=== PATIENT | male | born 1970 | race Caucasian/White ===

== ENCOUNTER → 2016-11-14 | Outpatient (CLI) | payer BC ==
--- NOTE | 2016-11-15 08:51 | MR ---
EXAMINATION: MRI lumbar spine HISTORY: Back pain COMPARISON: 12/16/2015 TECHNIQUE: Multiplanar and multisequence images obtained of the lumbar spine without contrast. FINDINGS: The lumbar spinal alignment appears normal. The vertebral body heights appear maintained. Endplate signal changes are noted at L5-S1. No suspicious bone marrow signal. There is partial fusio n of the right SI joint and a bridging osteophyte along the left SI joint. The distal spinal cord ap pears normal and the conus terminates at L1. There is a fine linear T1 focus extending from the filu m likely a tiny fibrolipoma. Visualized retroperitoneal structures appear normal. There are congenit ally shortened pedicles length. T12-L1: Small diffuse disc bulge with mild facet hypertrophy resulting in moderate spinal canal sten osis. There is moderate left and mild right neural foraminal stenosis. L1-L2: Small diffuse disc bulge with mild facet and ligamentum flavum hypertrophy resulting in moder ate spinal canal stenosis. There is moderate bilateral neural foraminal stenosis. L2-L3: Tiny diffuse disc bulge with mild facet and ligamentum flavum hypertrophy resulting in mild-t o-moderate spinal canal stenosis. Mild bilateral neural foraminal stenosis. L3-L4: Small to moderate diffuse disc bulge resulting in moderate spinal canal stenosis. Moderate to severe left and moderate right neural foraminal stenosis. L4-L5: Moderate diffuse disc bulge with facet and ligamentum flavum hypertrophy resulting in severe spinal canal stenosis. There is moderate to severe bilateral neural foraminal stenosis. L5-S1: Small diffuse disc bulge without significant spinal canal stenosis. There is moderate severe bilateral neural foraminal stenosis. IMPRESSION: 1. Moderate multilevel degenerative disc disease noted throughout the lumbar spine with congenitally shortened pedicles heights extension. The underlying stenosis. Individual details above. 2. 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 3. Moderate degenerative changes noted at the SI joints bilaterally.
== END ==
LOC: MW.MRI 09:15
PROVIDERS: ATTEND Student in an Organized Health Care Education/Training Program
DX: M54.5 Low back pain (principal); M51.36 Other intervertebral disc degeneration, lumbar region; M47.818 Spondylosis without myelopathy or radiculopathy, sacral and sacrococcygeal region
CPT/HCPCS: 72148; 72148-26

== ENCOUNTER 2016-12-08 22:59 | Emergency (ER) | payer BC ==
[2016-12-08 23:12] VITALS: BP 154/100
[2016-12-08] MEDS ORDERED: Lidocaine 1% with EPINEPHrine 1:100,000 20 ML MDV INJECT ONE (23:29)
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
[2016-12-09] MEDS ORDERED: ceFAZolin 1 GM Vial IM ONE (00:45)
[2016-12-09] MEDS ORDERED: Ondansetron 4 MG Tab.DIS PO ONE (01:00)
[2016-12-09] MEDS ORDERED: HYDROmorphone 1 MG/ML Syringe IM ONE (01:00)
[2016-12-09] MEDS ORDERED: Water For Injection, Sterile 20 ML ONE (01:10)
[2016-12-09] MEDS ORDERED: Octyl 2-Cyanoacrylate 1 Tube ONE (01:47)
[2016-12-09] MEDS ORDERED: Bacitracin Oint 1 GM U/D Packet TOP ONE (02:02)
[2016-12-09] MEDS ORDERED: Octyl 2-Cyanoacrylate 1 Tube TOP ONE (02:02)
[2016-12-09] MEDS ORDERED: Diphtheria,Pertussis(Acell),Tetanus Vaccine 0.5 ML Syringe IM ONE (02:11)
[2016-12-09] MEDS ORDERED: Diphtheria,Pertussis(Acell),Tetanus Vaccine 0.5 ML Syringe ONE (02:13)
--- NOTE | 2016-12-10 18:29 | CR ---
EXAM DATE: 12/08/16 PATIENT'S AGE: 46 Patient: ZION MERCADO Facility: [place], [place] Site . Site : 1970 Study: XRay Extremity Right ELBOW [id number]/6/2017 11:27:11 PM Ordering Physician: Lei Beckford Final Report: Indication: Trauma and pain Technique: Right elbow 3 views Comparison: None Findings/Impression: Bones: Alignment is normal. No fractures or bone lesions. Joint spaces: Unremarkable. No sign of joint effusion. Soft tissues: Multiple foci of foreign debris is present in the soft tissues adjacent to the olecranon. Dictated by Chip Sparks MD @ 12/09/2016 12:06:45 AM Dictated by: Chip Sparks MD @ 12/09/2016 00:07:04 (Electronic Signature) Report Signed by Proxy. CHRISS
== END 2016-12-09 02:22 | disposition home or self-care (01) ==
LOC: MW.ED 22:59
DX: S51.021A Laceration with foreign body of right elbow, initial encounter (principal); Z23 Encounter for immunization; V89.0XXA Person injured in unspecified motor-vehicle accident, nontraffic, initial encounter
CPT/HCPCS: 73080; 90715; 96372; 99284; A9270; G0390; J0690; J1170; 12004

== ENCOUNTER 2021-06-02 14:20 | Inpatient (IN) | payer BC ==
--- NOTE | 2021-06-02 16:39 | PCM.EKG ---
#1 Interpretation Time: 16:33 EKG Interpretation Comments: 87, normal sinus rhythm, nonspecific ST/T findings.
[2021-06-02] MEDS ORDERED: Sodium Chloride 0.9% 1,000 ML IV ONE (18:36)
[2021-06-02] MEDS ORDERED: Sodium Chloride 0.9% 2.5 ML Syringe FLUSH PRN (18:36)
[2021-06-02] MEDS ORDERED: Sodium Chloride 0.9% 10 ML Syringe FLUSH PRN (18:36)
[2021-06-02 19:22] LABS: BLOOD UREA NITROGEN,BUN 7 mg/dL (7.0-18.0); CARBON DIOXIDE,CO2 26.9 mmol/L (21.0-32.0); CHLORIDE,CL 95 mmol/L (98-107); GLUCOSE RANDOM 136 mg/dL (74-106); LIPASE 283 U/L (73-393); SODIUM,NA 131 mmol/L (136-148)
[2021-06-02] MEDS ORDERED: REMDESIVIR 200 MG in Sodium Chloride 0.9% 250 ML IV ONE (21:04)
[2021-06-02] MEDS ORDERED: Dexamethasone 10 MG/ML SDV IVPUSH ONE (21:04)
--- NOTE | 2021-06-02 21:50 | CR ---
INDICATION: Pain, shortness of breath, cough, COVID positive TECHNIQUE: Portable upright AP view of the chest COMPARISON: None FINDINGS: There are bilateral peripheral pulmonary opacities, likely representing COVID infiltrates. There is no sizable pleural effusion or pneumothorax. The cardiomediastinal silhouette is normal. The visualized osseous structures are unremarkable. IMPRESSION: Bilateral peripheral pulmonary opacities, likely representing COVID infiltrates. Dictated by Ghislaine Ryder MD @ 06/02/2021 9:49:39 PM (Electronically Signed)
--- NOTE | 2021-06-02 21:54 | EDM.PDOC ---
ED HPI GENERAL MEDICAL PROBLEM - General Chief Complaint: Respiratory Problem Stated Complaint: SOB,COUGH Time Seen by Provider: 06/02/21 18:03 Source of Information: Reports: Patient History Limitations: Reports: No Limitations - History of Present Illness INITIAL COMMENTS - FREE TEXT/NARRATIVE: HISTORY AND PHYSICAL: History of present illness: Patient is a 50-year-old male, with a history of hypertension, and known COVID- 19 diagnosis x1 week, who presents emergency room today with concern of worsening shortness of breath. Patient states that he has had symptoms for approximately 10 days and was diagnosed approximately a week ago with COVID-19. Patient states that he has been quarantining but since today, has been more short of breath than he has been. Patient states he has a pulse oximeter at home and his oxygen was in the high 80s/low 90s so came to the emergency room for further evaluation. Patient states with resuscitative Covid, he has had intermittent fevers, headache, generalized body aches, nausea, and diarrhea. Patient denies chest pain. Denies neck stiff ness, change in vision, syncope, or near syncope. Denies vomiting, abdominal pain, diarrhea, constipation, or dysuria. Has not noted any blood in urine or stool. Patient has been eating and drinking appropriately. Review of systems: As per history of present illness and below otherwise all systems reviewed and negative. Past medical history: As per history of present illness and as reviewed below otherwise noncontributory. Surgical history: As per history of present illness and as reviewed below otherwise noncontributory. Social history: See social history for further information Family history: As per history of present illness and as reviewed below otherwise noncontributor y. Physical exam: General: Patient is alert, oriented, and in no acute distress. Patient sitting comfortably on exam table. Tired appearing. Patient is 86% on room air, otherwise vitally stable and reviewed by me. HEENT: Atraumatic, normocephalic, pupils equal and reactive bilaterally, negative for conjunctival pallor or scleral icterus, mucous membranes moist, throat clear, neck supple, nontender, trachea midline. No drooling or trismus noted. No meningeal signs. No hot potato voice noted. Lungs: Clear to auscultation, breath sounds equal bilaterally, chest nontender. Heart: S1S2, regular rate and rhythm without overt murmur Abdomen: Soft, nondistended, nontender. Negative for masses or hepatosplenomegaly. Negative for costovertebral tenderness. Pelvis: Stable nontender. Genitourinary: Deferred. Rectal: Deferred. Skin: Intact, warm, dry. No lesions or rashes noted. Extremities: Atraumatic, negative for cords or calf pain. Neurovascular unremarkable. Neuro: Awake, alert, oriented. Cranial nerves II through XII unremarkable. Cerebellum unremarkable. Motor and sensory unremarkable throughout. Exam nonfocal. Medical Decision Making: Patient is a 50-year-old male, with a history of hypertension, and known COVID- 19 diagnosis who presents emergency room today with concern of worsening shortness of breath and hypoxia. Upon arrival to the ED, patient is tired appearing on exam, and oxygen on room air is 86%. Patient was placed on 3 L nasal cannula and is about 94% and breathing comfortably on exam with no increased work of breathing. Will obtain cardiac evaluation, D-dimer, and reassess patient. See Dr. Garcia's dictation for specific EKG interpretation. However, normal sinus rhythm without STEMI. Mild derangements of CBC unremarkable. CMP shows mild hyponatremia at 131 with hypochloremia 95. Glucose mildly elevated at 136. Troponin negative. Otherwise mild derangements of CMP unremarkable. Covid positive. Influenza negative. D-dimer within normal limits. Chest x-ray shows bilateral peripheral pulmonary opacities, likely representing COVID-19 infiltrates. Upon reevaluation of patient, he remains vitally stable, comfortable throughout stay in ED and is on 3 L nasal cannula at this time satting about 95%. I did call and speak to the hospitalist on-call, Dr. Chairez, and thoroughly discussed patient's case. Will admit to inpatient to Dr. Chairez. Voices understanding and is agreeable to plan of care. Denies any further questions or concerns at this time. Diagnostics: EKG, CBC, CMP, D-dimer, troponin, Covid, influenza, chest x-ray Therapeutics: Normal saline, remdesivir, Decadron Impression: COVID-19 viral infection with hypoxia Plan: Admit to inpatient to Dr. Chairez Definitive disposition and diagnosis as appropriate pending reevaluation and review of above. Bilateral Chest Pain Score (Numeric/FACES): 5 - Related Data Allergies Allergy/AdvReac Type Severity Reaction Status Date / Time No Known Allergies Allergy Verified 06/02/21 16:21 Home Meds: Home Meds Blood Pressure Medicine 12/08/16 [History] Eszopiclone [Lunesta] 12/08/16 [History] Gabapentin [Neurontin] 12/08/16 [History] Sertraline HCl [Zoloft] 12/08/16 [History] oxyCODONE 12/08/16 [History] cephALEXin [Keflex] 500 mg PO QID 5 Days capsule 12/09/16 [Rx] Past Medical History HEENT History: Reports: None Cardiovascular History: Reports: Hypertension Respiratory History: Reports: None Gastrointestinal History: Reports: None Musculoskeletal History: Reports: Other (See Below) Other Musculoskeletal History: spinal stenosis Neurological History: Reports: None Psychiatric History: Reports: Anxiety Endocrine/Metabolic History: Reports: None Dermatologic History: Reports: None - Infectious Disease History Infectious Disease History: Reports: Chicken Pox - Past Surgical History HEENT Surgical History: Reports: None Social & Family History - Family History Family Medical History: No Pertinent Family History - Tobacco Use Tobacco Use Status *Q: Never Tobacco User Second Hand Smoke Exposure: No - Caffeine Use Caffeine Use: Reports: Coffee, Soda - Recreational Drug Use Recreational Drug Use: No ED ROS GENERAL - Review of Systems Review Of Systems: Comprehensive ROS is negative, except as noted in HPI. ED EXAM, GENERAL - Physical Exam Exam: See Below (see dictation) Course - Vital Signs Last Recorded V/S: Last Vital Signs Temp 100 F 06/02/21 16:21 Pulse 85 06/02/21 19:52 Resp 18 06/02/21 19:52 BP 116/71 06/02/21 19:52 Pulse Ox 95 06/02/21 19:52 - Orders/Labs/Meds Orders: Active Orders 24 hr Category Date Time Status Admission Status [Patient Status] [ADT] Stat ADT 06/02/21 21:51 Active BILIRUBIN DIRECT [CHEM] DAILY Lab 06/03/21 21:15 Ordered BILIRUBIN DIRECT [CHEM] DAILY Lab 06/04/21 21:15 Ordered BILIRUBIN DIRECT [CHEM] DAILY Lab 06/05/21 21:15 Ordered BILIRUBIN DIRECT [CHEM] DAILY Lab 06/06/21 21:15 Ordered COMPREHENSIVE METABOLIC PN,CMP [CHEM] DAILY Lab 06/03/21 21:15 Ordered COMPREHENSIVE METABOLIC PN,CMP [CHEM] DAILY Lab 06/04/21 21:15 Ordered COMPREHENSIVE METABOLIC PN,CMP [CHEM] DAILY Lab 06/05/21 21:15 Ordered COMPREHENSIVE METABOLIC PN,CMP [CHEM] DAILY Lab 06/06/21 21:15 Ordered Sodium Chloride 0.9% [Saline Flush] Med 06/02/21 18:36 Active 10 ml FLUSH ASDIRECTED PRN Sodium Chloride 0.9% [Saline Flush] Med 06/02/21 18:36 Active 2.5 ml FLUSH ASDIRECTED PRN Saline Lock Insert [OM.PC] Stat Oth 06/02/21 18:36 Ordered Medication Orders Sodium Chloride (Sodium Chloride 0.9% 2.5 Ml Syringe) 2.5 ml FLUSH ASDIRECTED PRN PRN Reason: Keep Vein Open Last Admin: 06/02/21 21:41 Dose: 2.5 ml Documented by: JULIAN Sodium Chloride (Sodium Chloride 0.9% 10 Ml Syringe) 10 ml FLUSH ASDIRECTED PRN PRN Reason: Keep Vein Open Last Admin: 06/02/21 21:41 Dose: 10 ml Documented by: JULIAN Labs: Laboratory Tests 06/02/21 06/02/21 06/02/21 Range/Units 16:37 18:48 18:48 WBC 5.63 (4.0-11.0) K/uL RBC 4.65 (4.50-5.90) M/uL Hgb 14.0 (13.0-17.0) g/dL Hct 40.6 (38.0-50.0) % MCV 87.3 (80.0-98.0) fL MCH 30.1 (27.0-32.0) pg MCHC 34.5 (31.0-37.0) g/dL RDW Std Deviation 41.6 (28.0-62.0) fl RDW Coeff of [place]umiko 13 (11.0-15.0) % Plt Count 204 (150-400) K/uL MPV 9.00 (7.40-12.00) fL Neut % (Auto) 77.6 (48.0-80.0) % Lymph % (Auto) 10.7 L (16.0-40.0) % [place] % (Auto) 11.7 (0.0-15.0) % Eos % (Auto) 0.0 (0.0-7.0) % Baso % (Auto) 0.0 (0.0-1.5) % Neut # (Auto) 4.4 (1.4-5.7) K/uL Lymph # (Auto) 0.6 (0.6-2.4) K/uL [place] # (Auto) 0.7 (0.0-0.8) K/uL Eos # (Auto) 0.0 (0.0-0.7) K/uL Baso # (Auto) 0.0 (0.0-0.1) K/uL Nucleated RBC % 0.0 /100WBC Nucleated RBCs # 0 K/uL D-Dimer, Quantitative 0.34 (0.0-0.50) mg/L FEU Sodium (136-148) mmol/L Potassium (3.5-5.1) mmol/L Chloride (98-107) mmol/L Carbon Dioxide (21.0-32.0) mmol/L BUN (7.0-18.0) mg/dL Creatinine (0.8-1.3) mg/dL Est Cr Clr Drug Dosing mL/min Estimated GFR (MDRD) ml/min Glucose (74-106) mg/dL Calcium (8.5-10.1) mg/dL Total Bilirubin (0.2-1.0) mg/dL AST (15-37) IU/L ALT (14-63) IU/L Alkaline Phosphatase (46-116) U/L Troponin I (0.000-0.056) ng/mL Total Protein (6.4-8.2) g/dL Albumin (3.4-5.0) g/dL Globulin (2.6-4.0) g/dL Albumin/Globulin Ratio (0.9-1.6) Lipase (73-393) U/L SARS-CoV-2 RNA (CLAIRE) POSITIVE H (NEGATIVE) 06/02/21 Range/Units 18:48 WBC (4.0-11.0) K/uL RBC (4.50-5.90) M/uL Hgb (13.0-17.0) g/dL Hct (38.0-50.0) % MCV (80.0-98.0) fL MCH (27.0-32.0) pg MCHC (31.0-37.0) g/dL RDW Std Deviation (28.0-62.0) fl RDW Coeff of [place] (11.0-15.0) % Plt Count (150-400) K/uL MPV (7.40-12.00) fL Neut % (Auto) (48.0-80.0) % Lymph % (Auto) (16.0-40.0) % [place] % (Auto) (0.0-15.0) % Eos % (Auto) (0.0-7.0) % Baso % (Auto) (0.0-1.5) % Neut # (Auto) (1.4-5.7) K/uL Lymph # (Auto) (0.6-2.4) K/uL [place] # (Auto) (0.0-0.8) K/uL Eos # (Auto) (0.0-0.7) K/uL Baso # (Auto) (0.0-0.1) K/uL Nucleated RBC % /100WBC Nucleated RBCs # K/uL D-Dimer, Quantitative (0.0-0.50) mg/L FEU Sodium 131 L (136-148) mmol/L Potassium 4.0 (3.5-5.1) mmol/L Chloride 95 L (98-107) mmol/L Carbon Dioxide 26.9 (21.0-32.0) mmol/L BUN 7 (7.0-18.0) mg/dL Creatinine 0.9 (0.8-1.3) mg/dL Est Cr Clr Drug Dosing 92.89 mL/min Estimated GFR (MDRD) > 60.0 ml/min Glucose 136 H (74-106) mg/dL Calcium 8.0 L (8.5-10.1) mg/dL Total Bilirubin 0.4 (0.2-1.0) mg/dL AST 30 (15-37) IU/L ALT 33 (14-63) IU/L Alkaline Phosphatase 44 L (46-116) U/L Troponin I < 0.050 (0.000-0.056) ng/mL Total Protein 7.0 (6.4-8.2) g/dL Albumin 2.9 L (3.4-5.0) g/dL Globulin 4.1 H (2.6-4.0) g/dL Albumin/Globulin Ratio 0.7 L (0.9-1.6) Lipase 283 (73-393) U/L SARS-CoV-2 RNA (CLAIRE) (NEGATIVE) Meds: Medications Generic Name Dose Route Start Last Admin Trade Name Freq PRN Reason Stop Dose Admin Sodium Chloride 2.5 ml 06/02/21 18:36 06/02/21 21:41 Sodium Chloride 0.9% 2.5 Ml Syringe FLUSH 2.5 ml ASDIRECTED PRN Administration Keep Vein Open Sodium Chloride 10 ml 06/02/21 18:36 06/02/21 21:41 Sodium Chloride 0.9% 10 Ml Syringe FLUSH 10 ml ASDIRECTED PRN Administration Keep Vein Open Discontinued Medications Generic Name Dose Route Start Last Admin Trade Name Freq PRN Reason Stop Dose Admin Dexamethasone 6 mg 06/02/21 21:04 06/02/21 21:17 Dexamethasone 10 Mg/Ml Sdv IVPUSH 06/02/21 21:05 6 mg ONETIME ONE Administration Sodium Chloride 1,000 mls @ 999 mls/hr 06/02/21 18:36 06/02/21 18:50 Normal Saline IV 06/02/21 19:36 999 mls/hr BOLUS ONE Administration Remdesivir 200 mg/ Sodium 250 mls @ 250 mls/hr 06/02/21 21:04 06/02/21 21:40 Chloride IV 06/02/21 21:05 250 mls/hr ONETIME ONE Administration Departure - Departure Time of Disposition: 21:53 Disposition: Admitted As Inpatient 64 Clinical Impression: COVID-19 virus infection, Hypoxia - Discharge Information Referrals: Adarsh Atkinson MD [Primary Care Provider] - Forms: ED Department Discharge Sepsis Event Note (ED) - Focused Exam Vital Signs: Vital Signs Temp Pulse Resp BP Pulse Ox 06/02/21 19:52 85 18 116/71 95 06/02/21 18:54 87 137/75 95 06/02/21 17:50 85 126/72 91 L 06/02/21 16:50 85 16 124/72 81 L 06/02/21 16:21 100 F 91 18 125/61 91 L - My Orders Last 24 Hours: My Active Orders 06/02/21 18:36 Sodium Chloride 0.9% [Saline Flush] 10 ml FLUSH ASDIRECTED PRN Sodium Chloride 0.9% [Saline Flush] 2.5 ml FLUSH ASDIRECTED PRN Saline Lock Insert [OM.PC] Stat 06/02/21 21:51 Admission Status [Patient Status] [ADT] Stat 06/03/21 21:15 BILIRUBIN DIRECT [CHEM] DAILY COMPREHENSIVE METABOLIC PN,CMP [CHEM] DAILY 06/04/21 21:15 BILIRUBIN DIRECT [CHEM] DAILY COMPREHENSIVE METABOLIC PN,CMP [CHEM] DAILY 06/05/21 21:15 BILIRUBIN DIRECT [CHEM] DAILY COMPREHENSIVE METABOLIC PN,CMP [CHEM] DAILY 06/06/21 21:15 BILIRUBIN DIRECT [CHEM] DAILY COMPREHENSIVE METABOLIC PN,CMP [CHEM] DAILY - Assessment/Plan Last 24 Hours: My Active Orders 06/02/21 18:36 Sodium Chloride 0.9% [Saline Flush] 10 ml FLUSH ASDIRECTED PRN Sodium Chloride 0.9% [Saline Flush] 2.5 ml FLUSH ASDIRECTED PRN Saline Lock Insert [OM.PC] Stat 06/02/21 21:51 Admission Status [Patient Status] [ADT] Stat 06/03/21 21:15 BILIRUBIN DIRECT [CHEM] DAILY COMPREHENSIVE METABOLIC PN,CMP [CHEM] DAILY 06/04/21 21:15 BILIRUBIN DIRECT [CHEM] DAILY COMPREHENSIVE METABOLIC PN,CMP [CHEM] DAILY 06/05/21 21:15 BILIRUBIN DIRECT [CHEM] DAILY COMPREHENSIVE METABOLIC PN,CMP [CHEM] DAILY 06/06/21 21:15 BILIRUBIN DIRECT [CHEM] DAILY COMPREHENSIVE METABOLIC PN,CMP [CHEM] DAILY
[2021-06-03] MEDS ORDERED: Albuterol/Ipratropium 4 GM Inhalation Spray INH PRN (00:38)
[2021-06-03] MEDS ORDERED: Ibuprofen 200 MG Tab PO PRN (00:40)
[2021-06-03] MEDS ORDERED: Acetaminophen 325 MG Tab PO PRN (00:40)
--- NOTE | 2021-06-03 01:15 | PCM.HP.2 ---
H&P History of Present Illness - General Date of Service: 06/03/21 Admit Problem/Dx: Admission Diagnosis/Problem Admission Diagnosis/Problem Hypoxia - History of Present Illness Initial Comments - Free Text/Narative: 50 yo male with pmh of hypertension and depression who presents to the ED with complaint of shortness of breath, fevers, and cough for past ten days. He was noted to be hypoxic and requiring 3 L NC to keep sats above 90%. He tested positive for COVID and CXR reports bilateral peripherial pulmonary opacities likely representing COVID. Patient has not been vaccinated. Bilateral Chest Pain Score (Numeric/FACES): 5 - Related Data Allergies/Adverse Reactions: Allergies Allergy/AdvReac Type Severity Reaction Status Date / Time No Known Allergies Allergy Verified 06/03/21 00:23 Home Medications: Home Meds Eszopiclone [Lunesta] 2 mg PO BEDTIME 06/02/21 [History] Losartan [Cozaar] 100 mg PO DAILY 06/02/21 [History] Sertraline [Zoloft] 150 mg PO DAILY 06/02/21 [History] Testosterone Enanthate 200 mg IM WEEKLY 06/02/21 [History] amLODIPine Besylate [Amlodipine Besylate] 10 mg PO DAILY 06/02/21 [History] Past Medical History HEENT History: Reports: None Cardiovascular History: Reports: Hypertension Respiratory History: Reports: None Gastrointestinal History: Reports: None Musculoskeletal History: Reports: Other (See Below) Other Musculoskeletal History: spinal stenosis Neurological History: Reports: None Psychiatric History: Reports: Anxiety Endocrine/Metabolic History: Reports: None Dermatologic History: Reports: None - Infectious Disease History Infectious Disease History: Reports: Chicken Pox - Past Surgical History HEENT Surgical History: Reports: None Social & Family History - Family History Family Medical History: No Pertinent Family History - Tobacco Use Tobacco Use Status *Q: Never Tobacco User Second Hand Smoke Exposure: No - Caffeine Use Caffeine Use: Reports: Coffee, Soda - Recreational Drug Use Recreational Drug Use: No H&P Review of Systems - Review of Systems: Review Of Systems: Comprehensive ROS is negative, except as noted in HPI. Exam - Exam Exam: See Below - Vital Signs Vital Signs: Last Vital Signs Temp 36.4 C 06/03/21 00:05 Pulse 88 06/03/21 00:05 Resp 20 06/03/21 00:05 BP 126/75 06/03/21 00:05 Pulse Ox 93 L 06/03/21 00:05 Weight: 97.522 kg - Exam General: Alert, Oriented HEENT: Mucosa Moist & [place] Neck: Supple Lungs: Normal Respiratory Effort, Rhonchi Cardiovascular: Regular Rate, Regular Rhythm GI/Abdominal Exam: Soft, Non-Tender, No Distention Extremities: Non-Tender, No Pedal Edema Skin: Warm, Dry, Intact Neurological: No: Focal Deficit - Patient Data Lab Results Last 24 hrs: Laboratory Results - last 24 hr 06/02/21 06/02/21 06/02/21 Range/Units 16:37 18:48 18:48 WBC 5.63 (4.0-11.0) K/uL RBC 4.65 (4.50-5.90) M/uL Hgb 14.0 (13.0-17.0) g/dL Hct 40.6 (38.0-50.0) % MCV 87.3 (80.0-98.0) fL MCH 30.1 (27.0-32.0) pg MCHC 34.5 (31.0-37.0) g/dL RDW Std Deviation 41.6 (28.0-62.0) fl RDW Coeff of Yumiko 13 (11.0-15.0) % Plt Count 204 (150-400) K/uL MPV 9.00 (7.40-12.00) fL Neut % (Auto) 77.6 (48.0-80.0) % Lymph % (Auto) 10.7 L (16.0-40.0) % [place] % (Auto) 11.7 (0.0-15.0) % Eos % (Auto) 0.0 (0.0-7.0) % Baso % (Auto) 0.0 (0.0-1.5) % Neut # (Auto) 4.4 (1.4-5.7) K/uL Lymph # (Auto) 0.6 (0.6-2.4) K/uL [place] # (Auto) 0.7 (0.0-0.8) K/uL Eos # (Auto) 0.0 (0.0-0.7) K/uL Baso # (Auto) 0.0 (0.0-0.1) K/uL Nucleated RBC % 0.0 /100WBC Nucleated RBCs # 0 K/uL D-Dimer, Quantitative 0.34 (0.0-0.50) mg/L FEU Sodium (136-148) mmol/L Potassium (3.5-5.1) mmol/L Chloride (98-107) mmol/L Carbon Dioxide (21.0-32.0) mmol/L BUN (7.0-18.0) mg/dL Creatinine (0.8-1.3) mg/dL Est Cr Clr Drug Dosing mL/min Estimated GFR (MDRD) ml/min Glucose (74-106) mg/dL Calcium (8.5-10.1) mg/dL Total Bilirubin (0.2-1.0) mg/dL AST (15-37) IU/L ALT (14-63) IU/L Alkaline Phosphatase (46-116) U/L Troponin I (0.000-0.056) ng/mL Total Protein (6.4-8.2) g/dL Albumin (3.4-5.0) g/dL Globulin (2.6-4.0) g/dL Albumin/Globulin Ratio (0.9-1.6) Lipase (73-393) U/L SARS-CoV-2 RNA (CLAIRE) POSITIVE H (NEGATIVE) 06/02/21 Range/Units 18:48 WBC (4.0-11.0) K/uL RBC (4.50-5.90) M/uL Hgb (13.0-17.0) g/dL Hct (38.0-50.0) % MCV (80.0-98.0) fL MCH (27.0-32.0) pg MCHC (31.0-37.0) g/dL RDW Std Deviation (28.0-62.0) fl RDW Coeff of Yumiko (11.0-15.0) % Plt Count (150-400) K/uL MPV (7.40-12.00) fL Neut % (Auto) (48.0-80.0) % Lymph % (Auto) (16.0-40.0) % [place] % (Auto) (0.0-15.0) % Eos % (Auto) (0.0-7.0) % Baso % (Auto) (0.0-1.5) % Neut # (Auto) (1.4-5.7) K/uL Lymph # (Auto) (0.6-2.4) K/uL [place] # (Auto) (0.0-0.8) K/uL Eos # (Auto) (0.0-0.7) K/uL Baso # (Auto) (0.0-0.1) K/uL Nucleated RBC % /100WBC Nucleated RBCs # K/uL D-Dimer, Quantitative (0.0-0.50) mg/L FEU Sodium 131 L (136-148) mmol/L Potassium 4.0 (3.5-5.1) mmol/L Chloride 95 L (98-107) mmol/L Carbon Dioxide 26.9 (21.0-32.0) mmol/L BUN 7 (7.0-18.0) mg/dL Creatinine 0.9 (0.8-1.3) mg/dL Est Cr Clr Drug Dosing 92.89 mL/min Estimated GFR (MDRD) > 60.0 ml/min Glucose 136 H (74-106) mg/dL Calcium 8.0 L (8.5-10.1) mg/dL Total Bilirubin 0.4 (0.2-1.0) mg/dL AST 30 (15-37) IU/L ALT 33 (14-63) IU/L Alkaline Phosphatase 44 L (46-116) U/L Troponin I < 0.050 (0.000-0.056) ng/mL Total Protein 7.0 (6.4-8.2) g/dL Albumin 2.9 L (3.4-5.0) g/dL Globulin 4.1 H (2.6-4.0) g/dL Albumin/Globulin Ratio 0.7 L (0.9-1.6) Lipase 283 (73-393) U/L SARS-CoV-2 RNA (CLAIRE) (NEGATIVE) Result Diagrams: 06/02/21 18:48 06/02/21 18:48 Blas Results Last 24 hrs: Microbiology 06/02/21 16:37 Influenza Type A Antigen Screen - Final Nasopharyngeal Swab NEGATIVE INFLUENZA A VIRUS AG REFERENCE RANGE: NEGATIVE Influenza Type B Antigen Screen - Final NEGATIVE INFLUENZA B VIRUS AG REFERENCE RANGE: NEGATIVE Sepsis Event Note - Focused Exam Vital Signs: Vital Signs Temp Pulse Resp BP BP Pulse Ox 06/03/21 00:05 36.4 C 88 20 126/75 93 L 06/02/21 23:37 87 20 116/71 93 L 06/02/21 22:40 82 20 117/76 94 L 06/02/21 22:19 86 19 103/54 L 94 L 06/02/21 19:52 85 18 116/71 95 06/02/21 18:54 87 137/75 95 06/02/21 17:50 85 126/72 91 L 06/02/21 16:50 85 16 124/72 81 L 06/02/21 16:21 37.7 C 91 18 125/61 91 L - Problem List (1) COVID-19 virus infection SNOMED Code(s): 769173306 ICD Code: U07.1 - COVID-19 Status: Acute Current Visit: Yes (2) Hypoxia SNOMED Code(s): 795045600 ICD Code: R09.02 - HYPOXEMIA Status: Acute Current Visit: Yes Problem List Initiated/Reviewed/Updated: Yes Orders Last 24hrs: Active Orders 24 hr Category Date Time Status Admission Status [Patient Status] [ADT] Stat ADT 06/02/21 21:51 Active Antiembolic Devices [RC] PER UNIT ROUTINE Care 06/03/21 00:40 Ordered Oxygen Therapy [RC] PRN Care 06/03/21 00:40 Ordered RT Post Treatment Assessment [RC] Click to Edit Care 06/03/21 00:39 Ordered RT Pre-Treatment Assessment [RC] Click to Edit Care 06/03/21 00:39 Ordered Up ad Debbie [RC] ASDIRECTED Care 06/03/21 00:40 Ordered VTE/DVT Education [RC] PER UNIT ROUTINE Care 06/03/21 00:40 Ordered Vital Signs [RC] Q4H Care 06/03/21 00:40 Ordered Regular Diet [DIET] Diet 06/03/21 Breakfast Ordered BASIC METABOLIC PANEL,BMP [CHEM] AM Lab 06/03/21 05:11 Ordered BASIC METABOLIC PANEL,BMP [CHEM] AM Lab 06/04/21 05:11 Ordered BASIC METABOLIC PANEL,BMP [CHEM] AM Lab 06/05/21 05:11 Ordered CBC WITH AUTO DIFF [HEME] AM Lab 06/03/21 05:11 Ordered CBC WITH AUTO DIFF [HEME] AM Lab 06/04/21 05:11 Ordered CBC WITH AUTO DIFF [HEME] AM Lab 06/05/21 05:11 Ordered Acetaminophen [TylenoL] Med 06/03/21 00:40 Ordered 650 mg PO Q4H PRN Albuterol/Ipratropium [Combivent Respimat] Med 06/03/21 00:38 Ordered 1 gm INH Q4H PRN Benzonatate [Tessalon Perles] Med 06/03/21 00:38 Ordered 100 mg PO Q6H PRN Enoxaparin [Lovenox] Med 06/03/21 00:45 Ordered 40 mg SUBCUT Q24H Eszopiclone [Lunesta] Med 06/03/21 21:00 Ordered 2 mg PO BEDTIME Ibuprofen [Motrin] Med 06/03/21 00:40 Ordered 200 mg PO Q6H PRN Losartan [Cozaar] Med 06/03/21 09:00 Ordered 100 mg PO DAILY Remdesivir 100 mg Med 06/03/21 21:00 Ordered Sodium Chloride 0.9% [Normal Saline AdvBag] 100 ml IV Q24H Sertraline [Zoloft] Med 06/03/21 09:00 Ordered 150 mg PO DAILY Sodium Chloride 0.9% [Saline Flush] Med 06/02/21 18:36 Active 10 ml FLUSH ASDIRECTED PRN Sodium Chloride 0.9% [Saline Flush] Med 06/02/21 18:36 Active 2.5 ml FLUSH ASDIRECTED PRN amLODIPine Besylate Med 06/03/21 09:00 Ordered 10 mg PO DAILY dexAMETHasone Med 06/03/21 21:00 Ordered 4 mg PO Q24H Saline Lock Insert [OM.PC] Stat Oth 06/02/21 18:36 Ordered Sequential Compression Device [OM.PC] Per Unit Routine Oth 06/03/21 00:40 Ordered Resuscitation Status Routine Resus Stat 06/03/21 00:40 Ordered Medication Orders Acetaminophen (Acetaminophen 325 Mg Tab) 650 mg PO Q4H PRN PRN Reason: Pain (Mild 1-3)/fever Albuterol/Ipratropium (Albuterol/Ipratropium 4 Gm Inhalation [place]) 1 gm INH Q4H PRN PRN Reason: Dyspnea Amlodipine Besylate (Amlodipine 5 Mg Tab) 10 mg PO DAILY [facility] Benzonatate (Benzonatate 100 Mg Cap) 100 mg PO Q6H PRN PRN Reason: Cough Dexamethasone (Dexamethasone 4 Mg Tab) 4 mg PO Q24H [facility] Enoxaparin Sodium (Enoxaparin 40 Mg/0.4 Ml Syringe) 40 mg SUBCUT Q24H [facility] Eszopiclone (Eszopiclone 1 Mg Tab) 2 mg PO BEDTIME [facility] Remdesivir 100 mg/ Sodium (Chloride) 100 mls @ 100 mls/hr IV Q24H [facility] Stop: 06/06/21 21:59 Ibuprofen (Ibuprofen 200 Mg Tab) 200 mg PO Q6H PRN PRN Reason: Pain (mild 1-3) Losartan Potassium (Losartan 50 Mg Tab) 100 mg PO DAILY [facility] Sertraline HCl (Sertraline 100 Mg Tab) 150 mg PO DAILY [facility] Sodium Chloride (Sodium Chloride 0.9% 2.5 Ml Syringe) 2.5 ml FLUSH ASDIRECTED PRN PRN Reason: Keep Vein Open Last Admin: 06/02/21 21:41 Dose: 2.5 ml Documented by: JULIAN Sodium Chloride (Sodium Chloride 0.9% 10 Ml Syringe) 10 ml FLUSH ASDIRECTED PRN PRN Reason: Keep Vein Open Last Admin: 06/02/21 21:41 Dose: 10 ml Documented by: JULIAN Assessment/Plan Comment:: 50 yo male admitted for COVID pneumonia with hypoxia Hypoxia: 3 L NC will titrate as needed COVID pneumonia: treating with remdesivir, and dexamethasone Lovenox for DVT prophylaxis HTN: resume home medications
[2021-06-03] MEDS: Enoxaparin 40 MG/0.4 ML Syringe SUBCUT SCH ×2 (01:20→23:11)
[2021-06-03] MEDS: Benzonatate 100 MG Cap PO PRN (06:21)
[2021-06-03 07:51] LABS: BLOOD UREA NITROGEN,BUN 8 mg/dL (7.0-18.0); CARBON DIOXIDE,CO2 29.2 mmol/L (21.0-32.0); CHLORIDE,CL 98 mmol/L (98-107); GLUCOSE RANDOM 164 mg/dL (74-106); SODIUM,NA 133 mmol/L (136-148)
[2021-06-03] MEDS: amLODIPine 5 MG Tab PO SCH (08:32)
[2021-06-03] MEDS: Losartan 50 MG Tab PO SCH (08:33)
[2021-06-03] MEDS: Sertraline 100 MG Tab PO SCH (08:33)
--- NOTE | 2021-06-03 09:36 | PCM.PN ---
- General Info Date of Service: 06/03/21 - Review of Systems Systems Review Comment:: feeling a little bit better, reports severe cough and shortness of breat - Patient Data Vitals - Most Recent: Last Vital Signs Temp 37.0 C 06/03/21 08:31 Pulse 81 06/03/21 08:31 Resp 18 06/03/21 08:31 BP 118/67 06/03/21 08:33 Pulse Ox 91 L 06/03/21 08:31 Weight - Most Recent: 98.974 kg I&O - Last 24 Hours: Intake & Output 06/02/21 06/03/21 06/03/21 22:59 06:59 14:59 Intake Total 900 Output Total 0 Balance 900 Lab Results Last 24 Hours: Laboratory Results - last 24 hr 06/02/21 06/02/21 06/02/21 Range/Units 16:37 18:48 18:48 WBC 5.63 (4.0-11.0) K/uL RBC 4.65 (4.50-5.90) M/uL Hgb 14.0 (13.0-17.0) g/dL Hct 40.6 (38.0-50.0) % MCV 87.3 (80.0-98.0) fL MCH 30.1 (27.0-32.0) pg MCHC 34.5 (31.0-37.0) g/dL RDW Std Deviation 41.6 (28.0-62.0) fl RDW Coeff of Yumiko 13 (11.0-15.0) % Plt Count 204 (150-400) K/uL MPV 9.00 (7.40-12.00) fL Neut % (Auto) 77.6 (48.0-80.0) % Lymph % (Auto) 10.7 L (16.0-40.0) % [place] % (Auto) 11.7 (0.0-15.0) % Eos % (Auto) 0.0 (0.0-7.0) % Baso % (Auto) 0.0 (0.0-1.5) % Neut # (Auto) 4.4 (1.4-5.7) K/uL Lymph # (Auto) 0.6 (0.6-2.4) K/uL [place] # (Auto) 0.7 (0.0-0.8) K/uL Eos # (Auto) 0.0 (0.0-0.7) K/uL Baso # (Auto) 0.0 (0.0-0.1) K/uL Nucleated RBC % 0.0 /100WBC Nucleated RBCs # 0 K/uL D-Dimer, Quantitative 0.34 (0.0-0.50) mg/L FEU Sodium (136-148) mmol/L Potassium (3.5-5.1) mmol/L Chloride (98-107) mmol/L Carbon Dioxide (21.0-32.0) mmol/L BUN (7.0-18.0) mg/dL Creatinine (0.8-1.3) mg/dL Est Cr Clr Drug Dosing mL/min Estimated GFR (MDRD) ml/min Glucose (74-106) mg/dL Calcium (8.5-10.1) mg/dL Total Bilirubin (0.2-1.0) mg/dL AST (15-37) IU/L ALT (14-63) IU/L Alkaline Phosphatase (46-116) U/L Troponin I (0.000-0.056) ng/mL Total Protein (6.4-8.2) g/dL Albumin (3.4-5.0) g/dL Globulin (2.6-4.0) g/dL Albumin/Globulin Ratio (0.9-1.6) Lipase (73-393) U/L SARS-CoV-2 RNA (CLAIRE) POSITIVE H (NEGATIVE) 06/02/21 06/03/21 06/03/21 Range/Units 18:48 07:00 07:00 WBC 3.52 L (4.0-11.0) K/uL RBC 4.53 (4.50-5.90) M/uL Hgb 13.3 (13.0-17.0) g/dL Hct 39.3 (38.0-50.0) % MCV 86.8 (80.0-98.0) fL MCH 29.4 (27.0-32.0) pg MCHC 33.8 (31.0-37.0) g/dL RDW Std Deviation 41.1 (28.0-62.0) fl RDW Coeff of Yumiko 13 (11.0-15.0) % Plt Count 222 (150-400) K/uL MPV 9.40 (7.40-12.00) fL Neut % (Auto) 79.3 (48.0-80.0) % Lymph % (Auto) 13.6 L (16.0-40.0) % [place] % (Auto) 6.8 (0.0-15.0) % Eos % (Auto) 0.0 (0.0-7.0) % Baso % (Auto) 0.3 (0.0-1.5) % Neut # (Auto) 2.8 (1.4-5.7) K/uL Lymph # (Auto) 0.5 L (0.6-2.4) K/uL [place] # (Auto) 0.2 (0.0-0.8) K/uL Eos # (Auto) 0.0 (0.0-0.7) K/uL Baso # (Auto) 0.0 (0.0-0.1) K/uL Nucleated RBC % 0.0 /100WBC Nucleated RBCs # 0 K/uL D-Dimer, Quantitative (0.0-0.50) mg/L FEU Sodium 131 L 133 L (136-148) mmol/L Potassium 4.0 4.0 (3.5-5.1) mmol/L Chloride 95 L 98 (98-107) mmol/L Carbon Dioxide 26.9 29.2 (21.0-32.0) mmol/L BUN 7 8 (7.0-18.0) mg/dL Creatinine 0.9 1.0 (0.8-1.3) mg/dL Est Cr Clr Drug Dosing 92.89 83.60 mL/min Estimated GFR (MDRD) > 60.0 > 60.0 ml/min Glucose 136 H 164 H (74-106) mg/dL Calcium 8.0 L 7.7 L (8.5-10.1) mg/dL Total Bilirubin 0.4 (0.2-1.0) mg/dL AST 30 (15-37) IU/L ALT 33 (14-63) IU/L Alkaline Phosphatase 44 L (46-116) U/L Troponin I < 0.050 (0.000-0.056) ng/mL Total Protein 7.0 (6.4-8.2) g/dL Albumin 2.9 L (3.4-5.0) g/dL Globulin 4.1 H (2.6-4.0) g/dL Albumin/Globulin Ratio 0.7 L (0.9-1.6) Lipase 283 (73-393) U/L SARS-CoV-2 RNA (CLAIRE) (NEGATIVE) Blas Results Last 24 Hours: Microbiology 06/02/21 16:37 Influenza Type A Antigen Screen - Final Nasopharyngeal Swab NEGATIVE INFLUENZA A VIRUS AG REFERENCE RANGE: NEGATIVE Influenza Type B Antigen Screen - Final NEGATIVE INFLUENZA B VIRUS AG REFERENCE RANGE: NEGATIVE Med Orders - Current: Current Medications Acetaminophen (Acetaminophen 325 Mg Tab) 650 mg PO Q4H PRN PRN Reason: Pain (Mild 1-3)/fever Albuterol/Ipratropium (Albuterol/Ipratropium 4 Gm Inhalation [place]) 1 gm INH Q4H PRN PRN Reason: Dyspnea Amlodipine Besylate (Amlodipine 5 Mg Tab) 10 mg PO DAILY [facility] Last Admin: 06/03/21 08:32 Dose: 10 mg Documented by: Benzonatate (Benzonatate 100 Mg Cap) 100 mg PO Q6H PRN PRN Reason: Cough Last Admin: 06/03/21 06:21 Dose: 100 mg Documented by: Dexamethasone (Dexamethasone 4 Mg Tab) 4 mg PO Q24H [facility] Enoxaparin Sodium (Enoxaparin 40 Mg/0.4 Ml Syringe) 40 mg SUBCUT Q24H [facility] Last Admin: 06/03/21 01:20 Dose: 40 mg Documented by: Eszopiclone (Eszopiclone 1 Mg Tab) 2 mg PO BEDTIME [facility] Remdesivir 100 mg/ Sodium (Chloride) 100 mls @ 100 mls/hr IV Q24H [facility] Stop: 06/06/21 21:59 Ibuprofen (Ibuprofen 200 Mg Tab) 200 mg PO Q6H PRN PRN Reason: Pain (mild 1-3) Losartan Potassium (Losartan 50 Mg Tab) 100 mg PO DAILY [facility] Last Admin: 06/03/21 08:33 Dose: 100 mg Documented by: Sertraline HCl (Sertraline 100 Mg Tab) 150 mg PO DAILY [facility] Last Admin: 06/03/21 08:33 Dose: 150 mg Documented by: Sodium Chloride (Sodium Chloride 0.9% 2.5 Ml Syringe) 2.5 ml FLUSH ASDIRECTED PRN PRN Reason: Keep Vein Open Last Admin: 06/02/21 21:41 Dose: 2.5 ml Documented by: Sodium Chloride (Sodium Chloride 0.9% 10 Ml Syringe) 10 ml FLUSH ASDIRECTED PRN PRN Reason: Keep Vein Open Last Admin: 06/02/21 21:41 Dose: 10 ml Documented by: Discontinued Medications Dexamethasone (Dexamethasone 10 Mg/Ml Sdv) 6 mg IVPUSH ONETIME ONE Stop: 06/02/21 21:05 Last Admin: 06/02/21 21:17 Dose: 6 mg Documented by: Sodium Chloride (Normal Saline) 1,000 mls @ 999 mls/hr IV BOLUS ONE Stop: 06/02/21 19:36 Last Admin: 06/02/21 18:50 Dose: 999 mls/hr Documented by: Remdesivir 200 mg/ Sodium (Chloride) 250 mls @ 250 mls/hr IV ONETIME ONE Stop: 06/02/21 21:05 Last Admin: 06/02/21 21:40 Dose: 250 mls/hr Documented by: - Exam General: Alert, Oriented Lungs: Normal Respiratory Effort, Rhonchi Cardiovascular: Regular Rate, Regular Rhythm GI/Abdominal Exam: Normal Bowel Sounds, Soft, Non-Tender Extremities: Non-Tender, No Pedal Edema Skin: Warm, Dry, Intact Neurological: No New Focal Deficit - Patient Data Lab Results Last 24 hrs: Laboratory Results - last 24 hr 06/02/21 06/02/21 06/02/21 Range/Units 16:37 18:48 18:48 WBC 5.63 (4.0-11.0) K/uL RBC 4.65 (4.50-5.90) M/uL Hgb 14.0 (13.0-17.0) g/dL Hct 40.6 (38.0-50.0) % MCV 87.3 (80.0-98.0) fL MCH 30.1 (27.0-32.0) pg MCHC 34.5 (31.0-37.0) g/dL RDW Std Deviation 41.6 (28.0-62.0) fl RDW Coeff of Yumiko 13 (11.0-15.0) % Plt Count 204 (150-400) K/uL MPV 9.00 (7.40-12.00) fL Neut % (Auto) 77.6 (48.0-80.0) % Lymph % (Auto) 10.7 L (16.0-40.0) % [place]gett % (Auto) 11.7 (0.0-15.0) % Eos % (Auto) 0.0 (0.0-7.0) % Baso % (Auto) 0.0 (0.0-1.5) % Neut # (Auto) 4.4 (1.4-5.7) K/uL Lymph # (Auto) 0.6 (0.6-2.4) K/uL [place] # (Auto) 0.7 (0.0-0.8) K/uL Eos # (Auto) 0.0 (0.0-0.7) K/uL Baso # (Auto) 0.0 (0.0-0.1) K/uL Nucleated RBC % 0.0 /100WBC Nucleated RBCs # 0 K/uL D-Dimer, Quantitative 0.34 (0.0-0.50) mg/L FEU Sodium (136-148) mmol/L Potassium (3.5-5.1) mmol/L Chloride (98-107) mmol/L Carbon Dioxide (21.0-32.0) mmol/L BUN (7.0-18.0) mg/dL Creatinine (0.8-1.3) mg/dL Est Cr Clr Drug Dosing mL/min Estimated GFR (MDRD) ml/min Glucose (74-106) mg/dL Calcium (8.5-10.1) mg/dL Total Bilirubin (0.2-1.0) mg/dL AST (15-37) IU/L ALT (14-63) IU/L Alkaline Phosphatase (46-116) U/L Troponin I (0.000-0.056) ng/mL Total Protein (6.4-8.2) g/dL Albumin (3.4-5.0) g/dL Globulin (2.6-4.0) g/dL Albumin/Globulin Ratio (0.9-1.6) Lipase (73-393) U/L SARS-CoV-2 RNA (CLAIRE) POSITIVE H (NEGATIVE) 10/29/21 10/30/21 10/30/21 Range/Units 18:48 07:00 07:00 WBC 3.52 L (4.0-11.0) K/uL RBC 4.53 (4.50-5.90) M/uL Hgb 13.3 (13.0-17.0) g/dL Hct 39.3 (38.0-50.0) % MCV 86.8 (80.0-98.0) fL MCH 29.4 (27.0-32.0) pg MCHC 33.8 (31.0-37.0) g/dL RDW Std Deviation 41.1 (28.0-62.0) fl RDW Coeff of Yumiko 13 (11.0-15.0) % Plt Count 222 (150-400) K/uL MPV 9.40 (7.40-12.00) fL Neut % (Auto) 79.3 (48.0-80.0) % Lymph % (Auto) 13.6 L (16.0-40.0) % [place] % (Auto) 6.8 (0.0-15.0) % Eos % (Auto) 0.0 (0.0-7.0) % Baso % (Auto) 0.3 (0.0-1.5) % Neut # (Auto) 2.8 (1.4-5.7) K/uL Lymph # (Auto) 0.5 L (0.6-2.4) K/uL [place] # (Auto) 0.2 (0.0-0.8) K/uL Eos # (Auto) 0.0 (0.0-0.7) K/uL Baso # (Auto) 0.0 (0.0-0.1) K/uL Nucleated RBC % 0.0 /100WBC Nucleated RBCs # 0 K/uL D-Dimer, Quantitative (0.0-0.50) mg/L FEU Sodium 131 L 133 L (136-148) mmol/L Potassium 4.0 4.0 (3.5-5.1) mmol/L Chloride 95 L 98 (98-107) mmol/L Carbon Dioxide 26.9 29.2 (21.0-32.0) mmol/L BUN 7 8 (7.0-18.0) mg/dL Creatinine 0.9 1.0 (0.8-1.3) mg/dL Est Cr Clr Drug Dosing 92.89 83.60 mL/min Estimated GFR (MDRD) > 60.0 > 60.0 ml/min Glucose 136 H 164 H (74-106) mg/dL Calcium 8.0 L 7.7 L (8.5-10.1) mg/dL Total Bilirubin 0.4 (0.2-1.0) mg/dL AST 30 (15-37) IU/L ALT 33 (14-63) IU/L Alkaline Phosphatase 44 L (46-116) U/L Troponin I < 0.050 (0.000-0.056) ng/mL Total Protein 7.0 (6.4-8.2) g/dL Albumin 2.9 L (3.4-5.0) g/dL Globulin 4.1 H (2.6-4.0) g/dL Albumin/Globulin Ratio 0.7 L (0.9-1.6) Lipase 283 (73-393) U/L SARS-CoV-2 RNA (CLAIRE) (NEGATIVE) Result Diagrams: 06/03/21 07:00 06/03/21 07:00 Blas Results Last 24 hrs: Microbiology 06/02/21 16:37 Influenza Type A Antigen Screen - Final Nasopharyngeal Swab NEGATIVE INFLUENZA A VIRUS AG REFERENCE RANGE: NEGATIVE Influenza Type B Antigen Screen - Final NEGATIVE INFLUENZA B VIRUS AG REFERENCE RANGE: NEGATIVE Sepsis Event Note - Evaluation Sepsis Screening Result: No Definite Risk - Focused Exam Vital Signs: Vital Signs Temp Pulse Resp BP BP BP Pulse Ox 06/03/21 08:33 118/67 06/03/21 08:32 118/67 06/03/21 08:31 37.0 C 81 18 118/67 91 L 06/03/21 06:10 88 L 06/03/21 06:00 85 L 06/03/21 04:00 36.4 C 80 20 116/66 93 L 06/03/21 00:40 06/03/21 00:05 36.4 C 88 20 126/75 93 L 06/02/21 23:37 87 20 116/71 93 L 06/02/21 22:40 82 20 117/76 94 L 06/02/21 22:19 86 19 103/54 L 94 L Pulse Ox 06/03/21 08:33 06/03/21 08:32 06/03/21 08:31 06/03/21 06:10 06/03/21 06:00 06/03/21 04:00 06/03/21 00:40 93 L 06/03/21 00:05 06/02/21 23:37 06/02/21 22:40 06/02/21 22:19 - Problem List & Annotations (1) COVID-19 virus infection SNOMED Code(s): 871270312 Code(s): U07.1 - COVID-19 Status: Acute Current Visit: Yes (2) Hypoxia SNOMED Code(s): 513864732 Code(s): R09.02 - HYPOXEMIA Status: Acute Current Visit: Yes - Problem List Review Problem List Initiated/Reviewed/Updated: Yes - My Orders Last 24 Hours: My Active Orders 06/03/21 00:38 Albuterol/Ipratropium [Combivent Respimat] 1 gm INH Q4H PRN Benzonatate [Tessalon Perles] 100 mg PO Q6H PRN 06/03/21 00:39 RT Post Treatment Assessment [RC] Click to Edit RT Pre-Treatment Assessment [RC] Click to Edit 06/03/21 00:40 Antiembolic Devices [RC] PER UNIT ROUTINE Oxygen Therapy [RC] PRN Up ad Debbie [RC] ASDIRECTED VTE/DVT Education [RC] PER UNIT ROUTINE Vital Signs [RC] Q4H Acetaminophen [TylenoL] 650 mg PO Q4H PRN Ibuprofen [Motrin] 200 mg PO Q6H PRN Sequential Compression Device [OM.PC] Per Unit Routine Resuscitation Status Routine 06/03/21 00:45 Enoxaparin [Lovenox] 40 mg SUBCUT Q24H 06/03/21 Breakfast Regular Diet [DIET] 06/03/21 09:00 Losartan [Cozaar] 100 mg PO DAILY Sertraline [Zoloft] 150 mg PO DAILY amLODIPine [Norvasc] 10 mg PO DAILY 06/03/21 09:34 HEPATIC FUNCTION PANEL,HFP [CHEM] Routine 06/03/21 21:00 Eszopiclone [Lunesta] 2 mg PO BEDTIME Remdesivir 100 mg Sodium Chloride 0.9% [Normal Saline AdvBag] 100 ml IV Q24H dexAMETHasone 4 mg PO Q24H 06/04/21 05:11 CBC WITH AUTO DIFF [HEME] AM COMPREHENSIVE METABOLIC PN,CMP [CHEM] AM 06/05/21 05:11 CBC WITH AUTO DIFF [HEME] AM COMPREHENSIVE METABOLIC PN,CMP [CHEM] AM - Plan Plan:: 50 yo male admitted for COVID pneumonia with hypoxia Hypoxia: 4 L NC will titrate as needed COVID pneumonia: treating with remdesivir, and dexamethasone Lovenox for DVT prophylaxis HTN: resume home medications
[2021-06-03 09:50] LABS: BILIRUBIN INDIRECT 0.3
[2021-06-03] MEDS: Dexamethasone 4 MG Tab PO SCH (20:47)
[2021-06-03] MEDS: REMDESIVIR 100 MG in Sodium Chloride 0.9% 100 ML IV SCH (20:48)
[2021-06-04] MEDS: Enoxaparin 40 MG/0.4 ML Syringe SUBCUT SCH ×2 (00:26→23:50)
[2021-06-04 07:21] LABS: BLOOD UREA NITROGEN,BUN 13 mg/dL (7.0-18.0); CARBON DIOXIDE,CO2 32.1 mmol/L (21.0-32.0); CHLORIDE,CL 102 mmol/L (98-107); GLUCOSE RANDOM 169 mg/dL (74-106); POTASSIUM,K 4.4 mmol/L (3.5-5.1); SODIUM,NA 137 mmol/L (136-148)
[2021-06-04] MEDS: Losartan 50 MG Tab PO SCH (08:12)
[2021-06-04] MEDS: Sertraline 100 MG Tab PO SCH (08:13)
[2021-06-04] MEDS: amLODIPine 5 MG Tab PO SCH (08:14)
[2021-06-04] MEDS: Benzonatate 100 MG Cap PO PRN ×2 (08:26→21:30)
--- NOTE | 2021-06-04 16:14 | PCM.PN ---
- General Info Date of Service: 06/04/21 - Patient Data Vitals - Most Recent: Last Vital Signs Temp 36.8 C 06/04/21 14:48 Pulse 73 06/04/21 14:48 Resp 22 H 06/04/21 14:48 BP 109/55 L 06/04/21 14:48 Pulse Ox 91 L 06/04/21 14:48 Weight - Most Recent: 98.974 kg I&O - Last 24 Hours: Intake & Output 06/04/21 06/04/21 06/04/21 06:59 14:59 22:59 Intake Total 1650 1000 Output Total 600 Balance 1050 1000 Lab Results Last 24 Hours: Laboratory Results - last 24 hr 06/04/21 06/04/21 Range/Units 06:40 06:40 WBC 6.92 (4.0-11.0) K/uL RBC 4.63 (4.50-5.90) M/uL Hgb 13.6 (13.0-17.0) g/dL Hct 40.4 (38.0-50.0) % MCV 87.3 (80.0-98.0) fL MCH 29.4 (27.0-32.0) pg MCHC 33.7 (31.0-37.0) g/dL RDW Std Deviation 40.5 (28.0-62.0) fl RDW Coeff of Yumiko 13 (11.0-15.0) % Plt Count 274 (150-400) K/uL MPV 9.60 (7.40-12.00) fL Neut % (Auto) 81.8 H (48.0-80.0) % Lymph % (Auto) 8.4 L (16.0-40.0) % Gates % (Auto) 9.7 (0.0-15.0) % Eos % (Auto) 0.0 (0.0-7.0) % Baso % (Auto) 0.1 (0.0-1.5) % Neut # (Auto) 5.7 (1.4-5.7) K/uL Lymph # (Auto) 0.6 (0.6-2.4) K/uL [place] # (Auto) 0.7 (0.0-0.8) K/uL Eos # (Auto) 0.0 (0.0-0.7) K/uL Baso # (Auto) 0.0 (0.0-0.1) K/uL Nucleated RBC % 0.0 /100WBC Nucleated RBCs # 0 K/uL Sodium 137 (136-148) mmol/L Potassium 4.4 (3.5-5.1) mmol/L Chloride 102 (98-107) mmol/L Carbon Dioxide 32.1 H (21.0-32.0) mmol/L BUN 13 (7.0-18.0) mg/dL Creatinine 0.9 (0.8-1.3) mg/dL Est Cr Clr Drug Dosing 92.89 mL/min Estimated GFR (MDRD) > 60.0 ml/min Glucose 169 H (74-106) mg/dL Calcium 8.1 L (8.5-10.1) mg/dL Total Bilirubin 0.3 (0.2-1.0) mg/dL AST 28 (15-37) IU/L ALT 47 (14-63) IU/L Alkaline Phosphatase 46 (46-116) U/L Total Protein 6.6 (6.4-8.2) g/dL Albumin 2.5 L (3.4-5.0) g/dL Globulin 4.1 H (2.6-4.0) g/dL Albumin/Globulin Ratio 0.6 L (0.9-1.6) Med Orders - Current: Current Medications Acetaminophen (Acetaminophen 325 Mg Tab) 650 mg PO Q4H PRN PRN Reason: Pain (Mild 1-3)/fever Albuterol/Ipratropium (Albuterol/Ipratropium 4 Gm Inhalation [place]) 1 gm INH Q4H PRN PRN Reason: Dyspnea Amlodipine Besylate (Amlodipine 5 Mg Tab) 10 mg PO DAILY [facility] Last Admin: 06/04/21 08:14 Dose: 10 mg Documented by: Benzonatate (Benzonatate 100 Mg Cap) 100 mg PO Q6H PRN PRN Reason: Cough Last Admin: 06/04/21 08:26 Dose: 100 mg Documented by: Dexamethasone (Dexamethasone 4 Mg Tab) 4 mg PO Q24H [facility] Last Admin: 06/03/21 20:47 Dose: 4 mg Documented by: Enoxaparin Sodium (Enoxaparin 40 Mg/0.4 Ml Syringe) 40 mg SUBCUT Q24H [facility] Last Admin: 06/04/21 00:26 Dose: Not Given Documented by: Eszopiclone (Eszopiclone 1 Mg Tab) 2 mg PO BEDTIME [facility] Last Admin: 06/03/21 21:05 Dose: Not Given Documented by: Remdesivir 100 mg/ Sodium (Chloride) 100 mls @ 100 mls/hr IV Q24H [facility] Stop: 06/06/21 21:59 Last Admin: 06/03/21 20:48 Dose: 100 mls/hr Documented by: Ibuprofen (Ibuprofen 200 Mg Tab) 200 mg PO Q6H PRN PRN Reason: Pain (mild 1-3) Losartan Potassium (Losartan 50 Mg Tab) 100 mg PO DAILY [facility] Last Admin: 06/04/21 08:12 Dose: 100 mg Documented by: Sertraline HCl (Sertraline 100 Mg Tab) 150 mg PO DAILY [facility] Last Admin: 06/04/21 08:13 Dose: 150 mg Documented by: Sodium Chloride (Sodium Chloride 0.9% 2.5 Ml Syringe) 2.5 ml FLUSH ASDIRECTED PRN PRN Reason: Keep Vein Open Last Admin: 06/02/21 21:41 Dose: 2.5 ml Documented by: Sodium Chloride (Sodium Chloride 0.9% 10 Ml Syringe) 10 ml FLUSH ASDIRECTED PRN PRN Reason: Keep Vein Open Last Admin: 06/02/21 21:41 Dose: 10 ml Documented by: Discontinued Medications Dexamethasone (Dexamethasone 10 Mg/Ml Sdv) 6 mg IVPUSH ONETIME ONE Stop: 06/02/21 21:05 Last Admin: 06/02/21 21:17 Dose: 6 mg Documented by: Sodium Chloride (Normal Saline) 1,000 mls @ 999 mls/hr IV BOLUS ONE Stop: 06/02/21 19:36 Last Admin: 06/02/21 18:50 Dose: 999 mls/hr Documented by: Remdesivir 200 mg/ Sodium (Chloride) 250 mls @ 250 mls/hr IV ONETIME ONE Stop: 06/02/21 21:05 Last Admin: 06/02/21 21:40 Dose: 250 mls/hr Documented by: - Exam General: Alert, Oriented Neck: Supple Lungs: Normal Respiratory Effort, Rhonchi Cardiovascular: Regular Rate, Regular Rhythm GI/Abdominal Exam: Soft, Non-Tender, No Distention Neurological: No New Focal Deficit - Patient Data Lab Results Last 24 hrs: Laboratory Results - last 24 hr 06/04/21 06/04/21 Range/Units 06:40 06:40 WBC 6.92 (4.0-11.0) K/uL RBC 4.63 (4.50-5.90) M/uL Hgb 13.6 (13.0-17.0) g/dL Hct 40.4 (38.0-50.0) % MCV 87.3 (80.0-98.0) fL MCH 29.4 (27.0-32.0) pg MCHC 33.7 (31.0-37.0) g/dL RDW Std Deviation 40.5 (28.0-62.0) fl RDW Coeff of Yumiko 13 (11.0-15.0) % Plt Count 274 (150-400) K/uL MPV 9.60 (7.40-12.00) fL Neut % (Auto) 81.8 H (48.0-80.0) % Lymph % (Auto) 8.4 L (16.0-40.0) % Gates % (Auto) 9.7 (0.0-15.0) % Eos % (Auto) 0.0 (0.0-7.0) % Baso % (Auto) 0.1 (0.0-1.5) % Neut # (Auto) 5.7 (1.4-5.7) K/uL Lymph # (Auto) 0.6 (0.6-2.4) K/uL [place] # (Auto) 0.7 (0.0-0.8) K/uL Eos # (Auto) 0.0 (0.0-0.7) K/uL Baso # (Auto) 0.0 (0.0-0.1) K/uL Nucleated RBC % 0.0 /100WBC Nucleated RBCs # 0 K/uL Sodium 137 (136-148) mmol/L Potassium 4.4 (3.5-5.1) mmol/L Chloride 102 (98-107) mmol/L Carbon Dioxide 32.1 H (21.0-32.0) mmol/L BUN 13 (7.0-18.0) mg/dL Creatinine 0.9 (0.8-1.3) mg/dL Est Cr Clr Drug Dosing 92.89 mL/min Estimated GFR (MDRD) > 60.0 ml/min Glucose 169 H (74-106) mg/dL Calcium 8.1 L (8.5-10.1) mg/dL Total Bilirubin 0.3 (0.2-1.0) mg/dL AST 28 (15-37) IU/L ALT 47 (14-63) IU/L Alkaline Phosphatase 46 (46-116) U/L Total Protein 6.6 (6.4-8.2) g/dL Albumin 2.5 L (3.4-5.0) g/dL Globulin 4.1 H (2.6-4.0) g/dL Albumin/Globulin Ratio 0.6 L (0.9-1.6) Result Diagrams: 06/04/21 06:40 06/04/21 06:40 Sepsis Event Note - Evaluation Sepsis Screening Result: No Definite Risk - Focused Exam Vital Signs: Vital Signs Temp Pulse Resp BP BP Pulse Ox Pulse Ox 06/04/21 14:48 36.8 C 73 22 H 109/55 L 91 L 06/04/21 12:00 36.7 C 78 18 124/63 90 L 06/04/21 08:14 105/59 L 06/04/21 08:12 105/59 L 06/04/21 08:07 36.9 C 72 18 105/59 L 91 L 06/04/21 06:00 93 L - Problem List & Annotations (1) COVID-19 virus infection SNOMED Code(s): 649287474 Code(s): U07.1 - COVID-19 Status: Acute Current Visit: Yes (2) Hypoxia SNOMED Code(s): 105432626 Code(s): R09.02 - HYPOXEMIA Status: Acute Current Visit: Yes - Problem List Review Problem List Initiated/Reviewed/Updated: Yes - My Orders Last 24 Hours: My Active Orders 06/03/21 21:00 Eszopiclone [Lunesta] 2 mg PO BEDTIME Remdesivir 100 mg Sodium Chloride 0.9% [Normal Saline AdvBag] 100 ml IV Q24H dexAMETHasone 4 mg PO Q24H 06/05/21 05:11 CBC WITH AUTO DIFF [HEME] AM COMPREHENSIVE METABOLIC PN,CMP [CHEM] AM - Plan Plan:: 50 yo male admitted for COVID pneumonia with hypoxia Hypoxia: 3 L NC will titrate as needed COVID pneumonia: treating with remdesivir, and dexamethasone Lovenox for DVT prophylaxis HTN: continue home medications
[2021-06-04] MEDS: Dexamethasone 4 MG Tab PO SCH (21:30)
[2021-06-04] MEDS: REMDESIVIR 100 MG in Sodium Chloride 0.9% 100 ML IV SCH (21:31)
[2021-06-05 06:44] LABS: BLOOD UREA NITROGEN,BUN 13 mg/dL (7.0-18.0); CARBON DIOXIDE,CO2 28.7 mmol/L (21.0-32.0); CHLORIDE,CL 102 mmol/L (98-107); GLUCOSE RANDOM 163 mg/dL (74-106); POTASSIUM,K 4.1 mmol/L (3.5-5.1); SODIUM,NA 138 mmol/L (136-148)
[2021-06-05] MEDS: Sertraline 100 MG Tab PO SCH (08:34)
[2021-06-05] MEDS: amLODIPine 5 MG Tab PO SCH (08:35)
[2021-06-05] MEDS: Losartan 50 MG Tab PO SCH (08:35)
--- NOTE | 2021-06-05 15:06 | PCM.PN ---
- General Info Date of Service: 06/05/21 Admission Dx/Problem (Free Text): Admission Diagnosis/Problem Admission Diagnosis/Problem Hypoxia Subjective Update: Patient seen at bedside, no acute distress currently needing 2 L of oxygen, patient is keen to go home Functional Status: Reports: Tolerating Diet, Ambulating - Review of Systems General: Denies: Fever, Weakness, Fatigue, Malaise Pulmonary: Reports: Shortness of Breath. Denies: Pleuritic Chest Pain, Cough Cardiovascular: Reports: Dyspnea on Exertion. Denies: Palpitations Gastrointestinal: Denies: Abdominal Pain, Constipation Genitourinary: Denies: Dysuria, Frequency, Burning Musculoskeletal: Denies: Neck Pain, Shoulder Pain, Arm Pain Skin: Denies: Cyanosis, Jaundice, Mottled - Patient Data Vitals - Most Recent: Last Vital Signs Temp 36.4 C 06/05/21 08:33 Pulse 67 06/05/21 08:33 Resp 18 06/05/21 08:33 BP 121/74 06/05/21 08:35 Pulse Ox 92 L 06/05/21 08:33 Weight - Most Recent: 98.974 kg I&O - Last 24 Hours: Intake & Output 06/05/21 06/05/21 06/05/21 06:59 14:59 22:59 Intake Total 2300 Output Total 0 Balance 2300 Lab Results Last 24 Hours: Laboratory Results - last 24 hr 06/05/21 06/05/21 Range/Units 05:50 05:50 WBC 6.28 (4.0-11.0) K/uL RBC 4.63 (4.50-5.90) M/uL Hgb 13.6 (13.0-17.0) g/dL Hct 40.5 (38.0-50.0) % MCV 87.5 (80.0-98.0) fL MCH 29.4 (27.0-32.0) pg MCHC 33.6 (31.0-37.0) g/dL RDW Std Deviation 40.5 (28.0-62.0) fl RDW Coeff of [place]umiko 13 (11.0-15.0) % Plt Count 333 (150-400) K/uL MPV 9.60 (7.40-12.00) fL Neut % (Auto) 78.8 (48.0-80.0) % Lymph % (Auto) 11.8 L (16.0-40.0) % [place] % (Auto) 9.1 (0.0-15.0) % Eos % (Auto) 0.0 (0.0-7.0) % Baso % (Auto) 0.3 (0.0-1.5) % Neut # (Auto) 5.0 (1.4-5.7) K/uL Lymph # (Auto) 0.7 (0.6-2.4) K/uL [place] # (Auto) 0.6 (0.0-0.8) K/uL Eos # (Auto) 0.0 (0.0-0.7) K/uL Baso # (Auto) 0.0 (0.0-0.1) K/uL Nucleated RBC % 0.0 /100WBC Nucleated RBCs # 0 K/uL Sodium 138 (136-148) mmol/L Potassium 4.1 (3.5-5.1) mmol/L Chloride 102 (98-107) mmol/L Carbon Dioxide 28.7 (21.0-32.0) mmol/L BUN 13 (7.0-18.0) mg/dL Creatinine 0.8 (0.8-1.3) mg/dL Est Cr Clr Drug Dosing 104.50 mL/min Estimated GFR (MDRD) > 60.0 ml/min Glucose 163 H (74-106) mg/dL Calcium 8.3 L (8.5-10.1) mg/dL Total Bilirubin 0.4 (0.2-1.0) mg/dL AST 35 (15-37) IU/L ALT 66 H (14-63) IU/L Alkaline Phosphatase 53 (46-116) U/L Total Protein 6.5 (6.4-8.2) g/dL Albumin 2.5 L (3.4-5.0) g/dL Globulin 4.0 (2.6-4.0) g/dL Albumin/Globulin Ratio 0.6 L (0.9-1.6) Med Orders - Current: Current Medications Acetaminophen (Acetaminophen 325 Mg Tab) 650 mg PO Q4H PRN PRN Reason: Pain (Mild 1-3)/fever Albuterol/Ipratropium (Albuterol/Ipratropium 4 Gm Inhalation [place]) 1 gm INH Q4H PRN PRN Reason: Dyspnea Amlodipine Besylate (Amlodipine 5 Mg Tab) 10 mg PO DAILY [facility] Last Admin: 06/05/21 08:35 Dose: 10 mg Documented by: Benzonatate (Benzonatate 100 Mg Cap) 100 mg PO Q6H PRN PRN Reason: Cough Last Admin: 06/04/21 21:30 Dose: 100 mg Documented by: Dexamethasone (Dexamethasone 4 Mg Tab) 4 mg PO Q24H [facility] Last Admin: 06/04/21 21:30 Dose: 4 mg Documented by: Enoxaparin Sodium (Enoxaparin 40 Mg/0.4 Ml Syringe) 40 mg SUBCUT Q24H [facility] Last Admin: 06/04/21 23:50 Dose: 40 mg Documented by: Eszopiclone (Eszopiclone 1 Mg Tab) 2 mg PO BEDTIME [facility] Last Admin: 06/04/21 21:37 Dose: Not Given Documented by: Remdesivir 100 mg/ Sodium (Chloride) 100 mls @ 100 mls/hr IV Q24H [facility] Stop: 06/06/21 21:59 Last Admin: 06/04/21 21:31 Dose: 100 mls/hr Documented by: Ibuprofen (Ibuprofen 200 Mg Tab) 200 mg PO Q6H PRN PRN Reason: Pain (mild 1-3) Losartan Potassium (Losartan 50 Mg Tab) 100 mg PO DAILY [facility] Last Admin: 06/05/21 08:35 Dose: 100 mg Documented by: Sertraline HCl (Sertraline 100 Mg Tab) 150 mg PO DAILY [facility] Last Admin: 06/05/21 08:34 Dose: 150 mg Documented by: Sodium Chloride (Sodium Chloride 0.9% 2.5 Ml Syringe) 2.5 ml FLUSH ASDIRECTED PRN PRN Reason: Keep Vein Open Last Admin: 06/02/21 21:41 Dose: 2.5 ml Documented by: Sodium Chloride (Sodium Chloride 0.9% 10 Ml Syringe) 10 ml FLUSH ASDIRECTED PRN PRN Reason: Keep Vein Open Last Admin: 06/02/21 21:41 Dose: 10 ml Documented by: Discontinued Medications Dexamethasone (Dexamethasone 10 Mg/Ml Sdv) 6 mg IVPUSH ONETIME ONE Stop: 06/02/21 21:05 Last Admin: 06/02/21 21:17 Dose: 6 mg Documented by: Sodium Chloride (Normal Saline) 1,000 mls @ 999 mls/hr IV BOLUS ONE Stop: 06/02/21 19:36 Last Admin: 06/02/21 18:50 Dose: 999 mls/hr Documented by: Remdesivir 200 mg/ Sodium (Chloride) 250 mls @ 250 mls/hr IV ONETIME ONE Stop: 06/02/21 21:05 Last Admin: 06/02/21 21:40 Dose: 250 mls/hr Documented by: - Exam Quality Assessment: Supplemental Oxygen General: Alert, Oriented, Cooperative Neck: Supple Lungs: Normal Respiratory Effort, Decreased Breath Sounds, Crackles Cardiovascular: Regular Rate, Regular Rhythm GI/Abdominal Exam: Normal Bowel Sounds, Soft, Non-Tender - Patient Data Lab Results Last 24 hrs: Laboratory Results - last 24 hr 06/05/21 06/05/21 Range/Units 05:50 05:50 WBC 6.28 (4.0-11.0) K/uL RBC 4.63 (4.50-5.90) M/uL Hgb 13.6 (13.0-17.0) g/dL Hct 40.5 (38.0-50.0) % MCV 87.5 (80.0-98.0) fL MCH 29.4 (27.0-32.0) pg MCHC 33.6 (31.0-37.0) g/dL RDW Std Deviation 40.5 (28.0-62.0) fl RDW Coeff of [place] 13 (11.0-15.0) % Plt Count 333 (150-400) K/uL MPV 9.60 (7.40-12.00) fL Neut % (Auto) 78.8 (48.0-80.0) % Lymph % (Auto) 11.8 L (16.0-40.0) % [place] % (Auto) 9.1 (0.0-15.0) % Eos % (Auto) 0.0 (0.0-7.0) % Baso % (Auto) 0.3 (0.0-1.5) % Neut # (Auto) 5.0 (1.4-5.7) K/uL Lymph # (Auto) 0.7 (0.6-2.4) K/uL [place] # (Auto) 0.6 (0.0-0.8) K/uL Eos # (Auto) 0.0 (0.0-0.7) K/uL Baso # (Auto) 0.0 (0.0-0.1) K/uL Nucleated RBC % 0.0 /100WBC Nucleated RBCs # 0 K/uL Sodium 138 (136-148) mmol/L Potassium 4.1 (3.5-5.1) mmol/L Chloride 102 (98-107) mmol/L Carbon Dioxide 28.7 (21.0-32.0) mmol/L BUN 13 (7.0-18.0) mg/dL Creatinine 0.8 (0.8-1.3) mg/dL Est Cr Clr Drug Dosing 104.50 mL/min Estimated GFR (MDRD) > 60.0 ml/min Glucose 163 H (74-106) mg/dL Calcium 8.3 L (8.5-10.1) mg/dL Total Bilirubin 0.4 (0.2-1.0) mg/dL AST 35 (15-37) IU/L ALT 66 H (14-63) IU/L Alkaline Phosphatase 53 (46-116) U/L Total Protein 6.5 (6.4-8.2) g/dL Albumin 2.5 L (3.4-5.0) g/dL Globulin 4.0 (2.6-4.0) g/dL Albumin/Globulin Ratio 0.6 L (0.9-1.6) Result Diagrams: 06/05/21 05:50 06/05/21 05:50 Sepsis Event Note - Evaluation Sepsis Screening Result: No Definite Risk - Focused Exam Vital Signs: Vital Signs Temp Pulse Resp BP BP Pulse Ox 06/05/21 08:35 121/74 06/05/21 08:33 36.4 C 67 18 121/74 92 L 06/05/21 03:23 36.4 C 62 18 117/61 93 L - Problem List & Annotations (1) COVID-19 virus infection SNOMED Code(s): 884104294 Code(s): U07.1 - COVID-19 Status: Acute Current Visit: Yes (2) Hypoxia SNOMED Code(s): 419781330 Code(s): R09.02 - HYPOXEMIA Status: Acute Current Visit: Yes - Problem List Review Problem List Initiated/Reviewed/Updated: Yes - Plan Plan:: 50 yo male admitted for COVID pneumonia with hypoxia Hypoxia: 2 L NC will titrate as needed COVID pneumonia: treating with remdesivir, and dexamethasone Lovenox for DVT prophylaxis HTN: continue home medications, most likely DC tomorrow on home oxygen
[2021-06-05] MEDS: REMDESIVIR 100 MG in Sodium Chloride 0.9% 100 ML IV SCH (20:18)
[2021-06-05] MEDS: Dexamethasone 4 MG Tab PO SCH (20:20)
[2021-06-05] MEDS: Enoxaparin 40 MG/0.4 ML Syringe SUBCUT SCH (23:54)
[2021-06-05] MEDS: Benzonatate 100 MG Cap PO PRN (23:59)
[2021-06-06 07:08] LABS: BLOOD UREA NITROGEN,BUN 14 mg/dL (7.0-18.0); CARBON DIOXIDE,CO2 29.5 mmol/L (21.0-32.0); CHLORIDE,CL 104 mmol/L (98-107); GLUCOSE RANDOM 156 mg/dL (74-106); POTASSIUM,K 4.2 mmol/L (3.5-5.1); SODIUM,NA 140 mmol/L (136-148)
[2021-06-06] MEDS ORDERED: Dexamethasone 4 MG Tab PO SCH (09:00)
[2021-06-06] MEDS ORDERED: REMDESIVIR 100 MG in Sodium Chloride 0.9% 100 ML IV SCH (09:30)
[2021-06-06] MEDS: Sertraline 100 MG Tab PO SCH (09:32)
[2021-06-06] MEDS: Losartan 50 MG Tab PO SCH (09:33)
[2021-06-06] MEDS: amLODIPine 5 MG Tab PO SCH (09:34)
[2021-06-06 12:20] VITALS: BP 129/67; PULSE 72
--- NOTE | 2021-06-06 15:30 | PCM.DCSUM1 ---
Discharge Summary - Hospital Course Diagnosis: Stroke: No - Discharge Data Discharge Disposition: Home, Self-Care 01 Condition: Stable - Referral to Home Health Primary Care Physician: Adarsh Atkinson MD - Discharge Diagnosis/Problem(s) (1) COVID-19 virus infection SNOMED Code(s): 637230622 ICD Code: U07.1 - COVID-19 Status: Acute (2) Hypoxia SNOMED Code(s): 772510769 ICD Code: R09.02 - HYPOXEMIA Status: Acute - Patient Instructions Diet: Heart Healthy Diet Activity: As Tolerated Driving: May Drive Today Showering/Bathing: December Shower Notify Provider of: Fever, Increased Pain, Swelling and Redness, Drainage - Discharge Plan *PRESCRIPTION DRUG MONITORING PROGRAM REVIEWED*: No *COPY OF PRESCRIPTION DRUG MONITORING REPORT IN PATIENT CHRIS: No Prescriptions/Med Rec: dexAMETHasone [Dexamethasone] 6 mg PO Q24H 5 Days tablet Benzonatate [Tessalon Perles] 100 mg PO Q6H PRN #30 cap PRN Reason: Cough Home Medications: Home Meds Eszopiclone [Lunesta] 2 mg PO BEDTIME 06/02/21 [History] Losartan [Cozaar] 100 mg PO DAILY 06/02/21 [History] Sertraline [Zoloft] 150 mg PO DAILY 06/02/21 [History] Testosterone Enanthate 200 mg IM WEEKLY 06/02/21 [History] amLODIPine Besylate [Amlodipine Besylate] 10 mg PO DAILY 06/02/21 [History] Albuterol/Ipratropium [Combivent Respimat] 1 gm INH Q4H PRN inhaler 06/06/21 [Rx] Benzonatate [Tessalon Perles] 100 mg PO Q6H PRN #30 cap 06/06/21 [Rx] dexAMETHasone [Dexamethasone] 6 mg PO Q24H 5 Days tablet 06/06/21 [Rx] Patient Handouts: Hypoxia, COVID-19 Frequently Asked Questions, COVID-19, COVID-19 Vaccine Information, COVID-19: How to Protect Yourself and Others - CDC, COVID-19: Quarantine vs. Isolation - [facility] (07/21/2020), Dexamethasone tablets, Benzonatate capsules Referrals: Adarsh Atkinson MD [Primary Care Provider] - 06/19/21 8:30 am - Patient Data Vitals - Most Recent: Last Vital Signs Temp 36.7 C 06/06/21 12:19 Pulse 72 06/06/21 12:19 Resp 18 06/06/21 12:19 BP 129/67 06/06/21 12:19 Pulse Ox 91 L 06/06/21 12:19 Weight - Most Recent: 98.974 kg I&O - Last 24 hours: Intake & Output 06/06/21 06/06/21 06/06/21 06:59 14:59 22:59 Intake Total 1520 Output Total 0 Balance 1520 Lab Results - Last 24 hrs: Laboratory Results - last 24 hr 06/06/21 06/06/21 Range/Units 06:25 06:25 WBC 9.77 (4.0-11.0) K/uL RBC 4.96 (4.50-5.90) M/uL Hgb 14.9 (13.0-17.0) g/dL Hct 43.6 (38.0-50.0) % MCV 87.9 (80.0-98.0) fL MCH 30.0 (27.0-32.0) pg MCHC 34.2 (31.0-37.0) g/dL RDW Std Deviation 40.6 (28.0-62.0) fl RDW Coeff of [place] 13 (11.0-15.0) % Plt Count 382 (150-400) K/uL MPV 9.70 (7.40-12.00) fL Neut % (Auto) 81.5 H (48.0-80.0) % Lymph % (Auto) 10.0 L (16.0-40.0) % [place] % (Auto) 8.4 (0.0-15.0) % Eos % (Auto) 0.0 (0.0-7.0) % Baso % (Auto) 0.1 (0.0-1.5) % Neut # (Auto) 8.0 H (1.4-5.7) K/uL Lymph # (Auto) 1.0 (0.6-2.4) K/uL [place] # (Auto) 0.8 (0.0-0.8) K/uL Eos # (Auto) 0.0 (0.0-0.7) K/uL Baso # (Auto) 0.0 (0.0-0.1) K/uL Nucleated RBC % 0.0 /100WBC Nucleated RBCs # 0 K/uL Sodium 140 (136-148) mmol/L Potassium 4.2 (3.5-5.1) mmol/L Chloride 104 (98-107) mmol/L Carbon Dioxide 29.5 (21.0-32.0) mmol/L BUN 14 (7.0-18.0) mg/dL Creatinine 1.0 (0.8-1.3) mg/dL Est Cr Clr Drug Dosing 83.60 mL/min Estimated GFR (MDRD) > 60.0 ml/min Glucose 156 H (74-106) mg/dL Calcium 8.2 L (8.5-10.1) mg/dL Total Bilirubin 0.3 (0.2-1.0) mg/dL AST 40 H (15-37) IU/L ALT 135 H (14-63) IU/L Alkaline Phosphatase 63 (46-116) U/L Total Protein 6.8 (6.4-8.2) g/dL Albumin 2.6 L (3.4-5.0) g/dL Globulin 4.2 H (2.6-4.0) g/dL Albumin/Globulin Ratio 0.6 L (0.9-1.6) Med Orders - Current: Current Medications Discontinued Medications Acetaminophen (Acetaminophen 325 Mg Tab) 650 mg PO Q4H PRN PRN Reason: Pain (Mild 1-3)/fever Albuterol/Ipratropium (Albuterol/Ipratropium 4 Gm Inhalation [place]) 1 gm INH Q4H PRN PRN Reason: Dyspnea Amlodipine Besylate (Amlodipine 5 Mg Tab) 10 mg PO DAILY [facility] Last Admin: 06/06/21 09:34 Dose: 10 mg Documented by: Benzonatate (Benzonatate 100 Mg Cap) 100 mg PO Q6H PRN PRN Reason: Cough Last Admin: 06/05/21 23:59 Dose: 100 mg Documented by: Dexamethasone (Dexamethasone 10 Mg/Ml Sdv) 6 mg IVPUSH ONETIME ONE Stop: 06/02/21 21:05 Last Admin: 06/02/21 21:17 Dose: 6 mg Documented by: Dexamethasone (Dexamethasone 4 Mg Tab) 4 mg PO Q24H [facility] Last Admin: 06/05/21 20:20 Dose: 4 mg Documented by: Dexamethasone (Dexamethasone 4 Mg Tab) 6 mg PO Q24H [facility] Last Admin: 06/06/21 09:33 Dose: 6 mg Documented by: Enoxaparin Sodium (Enoxaparin 40 Mg/0.4 Ml Syringe) 40 mg SUBCUT Q24H [facility] Last Admin: 06/05/21 23:54 Dose: 40 mg Documented by: Eszopiclone (Eszopiclone 1 Mg Tab) 2 mg PO BEDTIME [facility] Last Admin: 06/05/21 20:20 Dose: Not Given Documented by: Sodium Chloride (Normal Saline) 1,000 mls @ 999 mls/hr IV BOLUS ONE Stop: 06/02/21 19:36 Last Admin: 06/02/21 18:50 Dose: 999 mls/hr Documented by: Remdesivir 200 mg/ Sodium (Chloride) 250 mls @ 250 mls/hr IV ONETIME ONE Stop: 06/02/21 21:05 Last Admin: 06/02/21 21:40 Dose: 250 mls/hr Documented by: Remdesivir 100 mg/ Sodium (Chloride) 100 mls @ 100 mls/hr IV Q24H [facility] Stop: 06/06/21 21:59 Last Admin: 06/05/21 20:18 Dose: 100 mls/hr Documented by: Remdesivir 100 mg/ Sodium (Chloride) 100 mls @ 100 mls/hr IV Q24H [facility] Stop: 06/06/21 10:29 Last Admin: 06/06/21 10:19 Dose: 100 mls/hr Documented by: Ibuprofen (Ibuprofen 200 Mg Tab) 200 mg PO Q6H PRN PRN Reason: Pain (mild 1-3) Losartan Potassium (Losartan 50 Mg Tab) 100 mg PO DAILY [facility] Last Admin: 06/06/21 09:33 Dose: 100 mg Documented by: Sertraline HCl (Sertraline 100 Mg Tab) 150 mg PO DAILY [facility] Last Admin: 06/06/21 09:32 Dose: 150 mg Documented by: Sodium Chloride (Sodium Chloride 0.9% 2.5 Ml Syringe) 2.5 ml FLUSH ASDIRECTED PRN PRN Reason: Keep Vein Open Last Admin: 06/02/21 21:41 Dose: 2.5 ml Documented by: Sodium Chloride (Sodium Chloride 0.9% 10 Ml Syringe) 10 ml FLUSH ASDIRECTED PRN PRN Reason: Keep Vein Open Last Admin: 06/02/21 21:41 Dose: 10 ml Documented by:
== END 2021-06-06 14:15 | disposition home or self-care (01) | DRG 137 ==
LOC: MW.ED 14:20 → MW.MS 21:51
PROVIDERS: ADMIT Internal Medicine; ATTEND Internal Medicine
PROC: XW033E5 Introduction of Remdesivir Anti-infective into Peripheral Vein, Percutaneous Approach, New Technology Group 5 (ICD-10-PCS; principal; 2021-06-02)
PROC: 3E0333Z Introduction of Anti-inflammatory into Peripheral Vein, Percutaneous Approach (ICD-10-PCS; 2021-06-02)
PROC: 3E0DX3Z Introduction of Anti-inflammatory into Mouth and Pharynx, External Approach (ICD-10-PCS; 2021-06-04)
DX: U07.1 COVID-19 (principal); I10 Essential (primary) hypertension; F32.A Depression, unspecified; M48.00 Spinal stenosis, site unspecified; J12.82 Pneumonia due to coronavirus disease 2019; Z79.899 Other long term (current) drug therapy; Z86.19 Personal history of other infectious and parasitic diseases
CPT/HCPCS: 36415; 71045; 71045-26; 80048; 80053; 80076; 83690; 84484; 85025; 85379; 87804; 93005; 96374; 99285-25; A9270-GY; J1100; J1650; J7030; J7050; J8540; U0002